=== PATIENT | male | born 1965 | race American Indian/Alaskan Native ===

== ENCOUNTER 2017-04-03 09:06 | Emergency (ER) | payer OTHER ==
[2017-04-03] MEDS ORDERED: CATAPRES PO ONE (12:13)
--- NOTE | 2017-04-03 12:26 | Emergency Department Report ---
Blank Doc - Documentation Documentation: Patient is a 51-year-old [place] male who is presenting with sore throat. Patient states his grandson had sore throat week ago was diagnosed with strep throat patient believes he may have this. Patient also has been out of his blood pressure medicines for several weeks because of a change in his primary physician. Patient's blood pressure was elevated 190 systolic but he does not have any signs of any end organ damage such as chest pain shortness of breath decreased urination or stroke symptoms. Patient was well have a rapid strep performed here in emergency department and will also be given Catapres for blood pressure
--- NOTE | 2017-04-03 12:59 | Emergency Department Report ---
ED General Adult HPI - General Chief complaint: Sore Throat Stated complaint: SORE THROAT/HEADACHE Time Seen by Provider: 04/03/17 12:03 Source: patient Mode of arrival: Ambulatory Limitations: No Limitations - History of Present Illness Initial comments: Patient is a 51-year-old Citizen Of [place] male who is presenting with sore throat. Patient states his grandson had sore throat week ago was diagnosed with strep throat patient believes he may have this. Patient also has been out of his blood pressure medicines for several weeks because of a change in his primary physician. Patient's blood pressure was elevated 190 systolic but he does not have any signs of any end organ damage such as chest pain shortness of breath decreased urination or stroke symptoms. Patient was well have a rapid strep performed here in emergency department and will also be given Catapres for blood pressure MD Complaint: 1 -: week(s) Radiation: other (sore throatn) Severity scale (0 -10): 4 Quality: burning, aching Consistency: intermittent Improves with: rest Worsens with: other (swallowing ) Associated Symptoms: fever/chills. denies: chest pain, headaches, loss of appetite, malaise, nausea/vomiting, shortness of breath, weakness - Related Data Home Medications Medication Instructions Recorded Confirmed Last Taken Lansoprazole (Nf) [Prevacid (Nf)] 30 mg PO QDAY 08/27/13 08/27/13 08/26/13 14:00 amLODIPine [Norvasc] 5 mg PO DAILY 08/27/13 08/27/13 08/26/13 14:00 Previous Rx's Medication Instructions Recorded Last Taken Type Cyclobenzaprine [Flexeril 10mg] 10 mg PO TID PRN #14 tablet 08/27/13 Unknown Rx Ibuprofen [Motrin] 800 mg PO Q8H PRN #20 tablet 08/27/13 Unknown Rx Azithromycin [Zithromax Z-JULISA] 250 mg PO DAILY #6 tab 04/03/17 Unknown Rx Dexamethasone [Decadron] 4 mg PO Q12H #6 tablet 04/03/17 Unknown Rx Ibuprofen 800 mg PO TID PRN #30 tablet 04/03/17 Unknown Rx Metoprolol [Lopressor TAB] 50 mg PO BID #60 tablet 04/03/17 Unknown Rx Allergies Allergy/AdvReac Type Severity Reaction Status Date / Time Penicillins Allergy Headache Verified 01/03/13 05:47 ED Review of Systems ROS: Stated complaint: SORE THROAT/HEADACHE Other details as noted in HPI Constitutional: chills, fever Eyes: denies: eye pain, eye discharge, vision change ENT: throat pain, congestion. denies: ear pain Respiratory: denies: cough, shortness of breath, wheezing Cardiovascular: denies: chest pain, palpitations Endocrine: no symptoms reported Gastrointestinal: denies: abdominal pain, nausea, diarrhea Genitourinary: denies: urgency, dysuria Musculoskeletal: denies: back pain, joint swelling, arthralgia Skin: denies: rash, lesions Neurological: denies: headache, weakness, paresthesias Psychiatric: denies: anxiety, depression Hematological/Lymphatic: denies: easy bleeding, easy bruising ED Past Medical Hx - Past Medical History Hx Hypertension: Yes Hx GERD: Yes - Surgical History Past Surgical History?: No - Social History Smoking Status: Never Smoker Substance Use Type: None - Medications Home Medications: Home Medications Medication Instructions Recorded Confirmed Last Taken Type Cyclobenzaprine [Flexeril 10mg] 10 mg PO TID PRN #14 tablet 08/27/13 Unknown Rx Ibuprofen [Motrin] 800 mg PO Q8H PRN #20 tablet 08/27/13 Unknown Rx Lansoprazole (Nf) [Prevacid (Nf)] 30 mg PO QDAY 08/27/13 08/27/13 08/26/13 14: 00 History amLODIPine [Norvasc] 5 mg PO DAILY 08/27/13 08/27/13 08/26/13 14:00 History Azithromycin [Zithromax Z-JULISA] 250 mg PO DAILY #6 tab 04/03/17 Unknown Rx Dexamethasone [Decadron] 4 mg PO Q12H #6 tablet 04/03/17 Unknown Rx Ibuprofen 800 mg PO TID PRN #30 tablet 04/03/17 Unknown Rx Metoprolol [Lopressor TAB] 50 mg PO BID #60 tablet 04/03/17 Unknown Rx ED Physical Exam - General Limitations: No Limitations General appearance: alert, in no apparent distress - Head Head exam: Present: atraumatic, normocephalic - Eye Eye exam: Present: normal appearance, PERRL, EOMI Pupils: Present: normal accommodation - ENT ENT exam: Present: normal exam, mucous membranes moist, TM's normal bilaterally - Expanded ENT Exam Expanded Throat exam: Positive: tonsillar erythema, tonsillomegaly. Negative: tonsillar exudate, R peritonsillar mass, L peritonsillar mass - Neck Neck exam: Present: normal inspection, full ROM. Absent: tenderness, meningismus, lymphadenopathy, thyromegaly - Respiratory Respiratory exam: Present: normal lung sounds bilaterally. Absent: respiratory distress, wheezes, rhonchi, chest wall tenderness - Cardiovascular Cardiovascular Exam: Present: regular rate, normal rhythm, normal heart sounds. Absent: systolic murmur, diastolic murmur, rubs, gallop - GI/Abdominal GI/Abdominal exam: Present: soft, normal bowel sounds. Absent: distended, tenderness, guarding, rebound, rigid, organomegaly, mass, bruit, pulsatile mass , hernia - Rectal Rectal exam: Present: deferred - Extremities Exam Extremities exam: Present: normal inspection, full ROM, normal capillary refill. Absent: tenderness, pedal edema, calf tenderness - Back Exam Back exam: Present: normal inspection, full ROM. Absent: tenderness, CVA tenderness (R), CVA tenderness (L), muscle spasm, paraspinal tenderness, vertebral tenderness - Neurological Exam Neurological exam: Present: alert, oriented X3, normal gait, reflexes normal - Psychiatric Psychiatric exam: Present: normal affect, normal mood - Skin Skin exam: Present: warm, dry, intact, normal color. Absent: rash ED Course Vital Signs 04/03/17 09:20 Temperature 98.2 F Pulse Rate 114 H Respiratory 20 Rate Blood Pressure 198/119 O2 Sat by Pulse 100 Oximetry ED Medical Decision Making - Medical Decision Making Patient is a 51-year-old Citizen Of [place] male who is presenting with sore throat. Patient states his grandson had sore throat week ago was diagnosed with strep throat patient believes he may have this. Patient also has been out of his blood pressure medicines for several weeks because of a change in his primary physician. Patient's blood pressure was elevated 190 systolic but he does not have any signs of any end organ damage such as chest pain shortness of breath decreased urination or stroke symptoms. Patient was well have a rapid strep performed here in emergency department and will also be given Catapres for blood pressure pt appears well nontoxic pt denies fever or chills at this time, exam: TMs normal, nose: boggy clear post nasal drip , pharynx: moderate erythema mild swelling , no exudate no lesions, uvula midline lungs clear bilat no wheezing rapid strep negative, plan. amoxicillin ,decadron, refill metoprolol , pt will follow up with pcp in 2-3 days, Sweetie in 2-3 days for bp and symptoms follow up pt verbalized agreement and understanding of same,, pt denies headache no dizziness no lightheadedness no n/v no cp no sob, pt is a/ox 3 ambulatory gait steady with nad , will return to ed if symptoms worsen. Critical care attestation.: If time is entered above; I have spent that time in minutes in the direct care of this critically ill patient, excluding procedure time. ED Disposition Clinical Impression: Medication refill Pharyngitis Qualifiers: Pharyngitis/tonsillitis etiology: unspecified etiology Qualified Code(s): J02.9 - Acute pharyngitis, unspecified Disposition: DC-01 TO HOME OR SELFCARE Is pt being admited?: No Does the pt Need Aspirin: No Condition: Good Instructions: Pharyngitis (ED) Prescriptions: Azithromycin [Zithromax Z-JULISA] 250 mg PO DAILY #6 tab Dexamethasone [Decadron] 4 mg PO Q12H #6 tablet Ibuprofen 800 mg PO TID PRN #30 tablet PRN Reason: pain and fever Metoprolol [Lopressor TAB] 50 mg PO BID #60 tablet Referrals: PRIMARY CARE, [Primary Care Provider] - 3-5 Days Forms: Work/School Release Form(ED) Time of Disposition: 13:15
[2017-04-03 13:32] VITALS: BP 173/125
== END 2017-04-03 13:31 | disposition home or self-care (01) ==
LOC: ED 09:06
DX: J02.9 Acute pharyngitis, unspecified (principal); I10 Essential (primary) hypertension; K21.9 Gastro-esophageal reflux disease without esophagitis; Z88.0 Allergy status to penicillin
CPT/HCPCS: 87116; 87430; 99283

== ENCOUNTER 2017-04-10 12:38 | Emergency (ER) | payer OTHER ==
[2017-04-10 14:34] VITALS: BP 170/111
[2017-04-10] MEDS ORDERED: CATAPRES PO ONE (15:43)
--- NOTE | 2017-04-10 15:44 | Emergency Department Report ---
ED Headache HPI - General Chief Complaint: Headache Stated Complaint: NAZARIO HTN Time Seen by Provider: 04/10/17 15:36 - History of Present Illness Initial Comments: Patient is a 51-year-old male who been off his blood pressure medicines for some time and had it refilled last week when he presented with cough cold congestion and sore throat. Patient has started taking a Z-Julisa and steroids and states he has a little bit of postnasal drip but that is improved. Patient presenting with a sudden global headache 4 out of 5 in severity there is no nausea vomiting chest pain shortness of breath. Patient states he took his blood pressure at home and it was 190 systolic and he has been taking his metoprolol also decides come back to the emergency department Allergies/Adverse Reactions: Allergies Penicillins Allergy (Verified 01/03/13 05:47) Headache Home Medications: Ambulatory Orders Cyclobenzaprine [Flexeril 10mg] 10 mg PO TID PRN #14 tablet 08/27/13 Ibuprofen [Motrin] 800 mg PO Q8H PRN #20 tablet 08/27/13 Lansoprazole (Nf) [Prevacid (Nf)] 30 mg PO QDAY 08/27/13 amLODIPine [Norvasc] 5 mg PO DAILY 08/27/13 Azithromycin [Zithromax Z-JULISA] 250 mg PO DAILY #6 tab 04/03/17 Dexamethasone [Decadron] 4 mg PO Q12H #6 tablet 04/03/17 Ibuprofen 800 mg PO TID PRN #30 tablet 04/03/17 Metoprolol [Lopressor TAB] 50 mg PO BID #60 tablet 04/03/17 Amlodipine Besylate [Norvasc] 5 mg PO DAILY #30 tablet 04/10/17 ED Review of Systems ROS: Stated complaint: NAZARIO HTN Other details as noted in HPI Comment: All other systems reviewed and negative ED Past Medical Hx - Past Medical History Hx Hypertension: Yes Hx GERD: Yes - Surgical History Past Surgical History?: No - Social History Smoking Status: Never Smoker Substance Use Type: None - Medications Home Medications: Home Medications Medication Instructions Recorded Confirmed Last Taken Type Cyclobenzaprine [Flexeril 10mg] 10 mg PO TID PRN #14 tablet 08/27/13 Unknown Rx Ibuprofen [Motrin] 800 mg PO Q8H PRN #20 tablet 08/27/13 Unknown Rx Lansoprazole (Nf) [Prevacid (Nf)] 30 mg PO QDAY 08/27/13 08/27/13 08/26/13 14: 00 History amLODIPine [Norvasc] 5 mg PO DAILY 08/27/13 08/27/13 08/26/13 14:00 History Azithromycin [Zithromax Z-JULISA] 250 mg PO DAILY #6 tab 04/03/17 Unknown Rx Dexamethasone [Decadron] 4 mg PO Q12H #6 tablet 04/03/17 Unknown Rx Ibuprofen 800 mg PO TID PRN #30 tablet 04/03/17 Unknown Rx Metoprolol [Lopressor TAB] 50 mg PO BID #60 tablet 04/03/17 Unknown Rx Amlodipine Besylate [Norvasc] 5 mg PO DAILY #30 tablet 04/10/17 Unknown Rx ED Physical Exam - General Limitations: No Limitations General appearance: alert, in no apparent distress - Head Head exam: Present: atraumatic, normocephalic - Eye Eye exam: Present: normal appearance - ENT ENT exam: Present: mucous membranes moist - Neck Neck exam: Present: normal inspection - Respiratory Respiratory exam: Present: normal lung sounds bilaterally. Absent: respiratory distress - Cardiovascular Cardiovascular Exam: Present: regular rate, normal rhythm. Absent: systolic murmur, diastolic murmur, rubs, gallop - GI/Abdominal GI/Abdominal exam: Present: soft, normal bowel sounds - Rectal Rectal exam: Present: deferred - Extremities Exam Extremities exam: Present: normal inspection - Back Exam Back exam: Present: normal inspection - Neurological Exam Neurological exam: Present: alert, oriented X3 - Psychiatric Psychiatric exam: Present: normal affect, normal mood - Skin Skin exam: Present: warm, dry, intact, normal color. Absent: rash ED Course Vital Signs 04/10/17 14:31 Temperature 98.4 F Pulse Rate 76 Respiratory 16 Rate Blood Pressure 170/111 O2 Sat by Pulse 98 Oximetry ED Medical Decision Making - Medical Decision Making Patient still is having poorly controlled blood pressure he is taking his metoprolol as prescribed and will add Norvasc and again have the patient follow up with [facility] Critical care attestation.: If time is entered above; I have spent that time in minutes in the direct care of this critically ill patient, excluding procedure time. ED Disposition Clinical Impression: Hypertensive urgency Disposition: DC-01 TO HOME OR SELFCARE Is pt being admited?: No Does the pt Need Aspirin: No Condition: Stable Instructions: Hypertension (ED) Prescriptions: Amlodipine Besylate [Norvasc] 5 mg PO DAILY #30 tablet Referrals: PRIMARY CARE, [Primary Care Provider] - 3-5 Days
== END 2017-04-10 15:52 | disposition home or self-care (01) ==
LOC: ED 12:38
DX: I10 Essential (primary) hypertension (principal); K21.9 Gastro-esophageal reflux disease without esophagitis
CPT/HCPCS: 99282